=== PATIENT | female | born 1975 ===

== ENCOUNTER 2017-10-22 13:11 | Emergency (ER) | payer MEDICAID ==
[2017-10-22] MEDS ORDERED: predniSONE 20 MG TAB ONE (13:45)
--- NOTE | 2017-10-22 15:13 | RAD ---
RADIOGRAPH CHEST 2 VIEWS: HISTORY: 41-year-old female with cough and dyspnea. FINDINGS: There is no air space density, pulmonary edema, pleural effusion, or pneumothorax. IMPRESSION: No acute pulmonary findings. [place] POS: [id number]
== END 2017-10-22 14:00 | disposition home or self-care (01) ==
LOC: ERS 13:11
DX: J45.909 Unspecified asthma, uncomplicated (principal); Z79.899 Other long term (current) drug therapy
CPT/HCPCS: 71046; 94640; J7506; J7620